=== PATIENT | female | born 1935 | race Caucasian/White ===

== ENCOUNTER 2020-07-02 06:50 | Day surgery (SDC) | payer MEDICARE ==
[2020-07-02] VITALS (8 sets, daily range): BP systolic 115–151; BP diastolic 55–78
[~2020-07-02] VITALS: Ht 157.5 cm; Wt 73.9 kg
[~2020-07-02 06:50] MED LIST: APIX2.5T PO; BRIM10DR16 OP; CALC-724 PO; CETI10CA5 PO; DEXT15DR29 OP; DORZ10DR10 OP; FERR325T22 PO; FURO40TA5 PO; ISOS20TA7 PO; LEVO137T2 PO; LEVO150T11 PO; LOSA100T58 PO; MULT-1192 PO; PROP10DR2 OP; PROP10DR5 OP; REPA0.5T6 PO; SIME62.5 PO; SIMV10TA97 PO; SOTA80TA PO; XALA2.5OS OD
[2020-07-02] MEDS ORDERED: LIDOCAINE HCL-MPF 2% 5ML VIAL ONE (07:33)
[2020-07-02] MEDS ORDERED: PROPOFOL 10 MG/ML 20ML VIAL IV ONE (07:33)
[2020-07-02] MEDS ORDERED: SODIUM CHLORIDE 0.9% 1000ML 1,000 ML IV ONE (08:15)
== END 2020-07-02 09:15 | disposition home or self-care (01) ==
LOC: DAH 06:50
PROVIDERS: ATTEND Student in an Organized Health Care Education/Training Program
DX: K25.1 Acute gastric ulcer with perforation (principal); K44.9 Diaphragmatic hernia without obstruction or gangrene; Z20.828 Contact with and (suspected) exposure to other viral communicable diseases
CPT/HCPCS: 43235; 82948 ×2; A4215; A4221; A4222; A4223; A4606; A4620; A4663; C9803; J2704; J3490; J7030; U0003

== ENCOUNTER → 2020-11-06 | Outpatient (CLI) | payer MEDICARE ==
[~2020-11-06] MED LIST changes: -BRIM10DR16 OP; +BRIM10DR16 OU; +CALC-1158 PO; -CALC-724 PO; -DEXT15DR29 OP; +DEXT15DR29 OU; -DORZ10DR10 OP; +DORZ10DR10 OU; -FERR325T22 PO; +FISH OIL PO; +GENTEAL TEARS OU; -ISOS20TA7 PO; +ISOS20TA85 PO; -LOSA100T58 PO; +LOSA50TA64 PO; +METO-408 PO; +PANT40TA54 PO; +POTA20TA82 PO; -PROP10DR2 OP; -PROP10DR5 OP; +SIME125T3 PO; -SIME62.5 PO; -SOTA80TA PO; -XALA2.5OS OD; +XALA2.5OS OU
== END | disposition home or self-care (01) ==
LOC: RAH 08:43
PROVIDERS: ATTEND Student in an Organized Health Care Education/Training Program
DX: K44.9 Diaphragmatic hernia without obstruction or gangrene (principal); K21.9 Gastro-esophageal reflux disease without esophagitis
CPT/HCPCS: 74240

== ENCOUNTER → 2020-11-27 | Outpatient (CLI) | payer MEDICARE | END | disposition home or self-care (01) | LOC: RAH 09:00 | PROVIDERS: ATTEND Student in an Organized Health Care Education/Training Program | DX: K44.9 Diaphragmatic hernia without obstruction or gangrene (principal); R10.9 Unspecified abdominal pain; N26.1 Atrophy of kidney (terminal); K57.90 Diverticulosis of intestine, part unspecified, without perforation or abscess without bleeding | CPT/HCPCS: 74176 ==

== ENCOUNTER → 2021-04-08 | Outpatient (CLI) | payer MEDICARE | END | disposition home or self-care (01) | LOC: RAH 11:00 | PROVIDERS: ATTEND Student in an Organized Health Care Education/Training Program | DX: R10.9 Unspecified abdominal pain (principal) | CPT/HCPCS: 78264; A9541 ==

== ENCOUNTER → 2021-04-15 | Outpatient (CLI) | payer MEDICARE | END | disposition home or self-care (01) | LOC: RAH 08:53 | PROVIDERS: ATTEND Student in an Organized Health Care Education/Training Program | DX: K44.9 Diaphragmatic hernia without obstruction or gangrene (principal); K25.1 Acute gastric ulcer with perforation; K31.89 Other diseases of stomach and duodenum | CPT/HCPCS: 74240 ==

== ENCOUNTER 2021-05-28 06:38 | Day surgery (SDC) | payer MEDICARE ==
[~2021-05-28 06:38] MED LIST changes: +0.9%NACL 1000ML 1,000 ML IV ONE; -CETI10CA5 PO; -DEXT15DR29 OU; -LEVO137T2 PO; -MULT-1192 PO; -SIME125T3 PO
[2021-05-28 08:32] VITALS: BP 131/61
[2021-05-28] MEDS ORDERED: PROPOFOL 10 MG/ML 20ML VIAL IV ONE (08:45)
[2021-05-28] MEDS ORDERED: 0.9%NACL 10ML VIAL ONE (08:56)
[2021-05-28] MEDS ORDERED: PHENYLEPHRINE HCL 10 MG/ML 1ML VIAL IV ONE (08:56)
[2021-05-28 09:00] VITALS: BP 124/52
[2021-05-28 09:05] VITALS: BP 126/50
[2021-05-28 09:10] VITALS: BP 126/47
[2021-05-28 09:15] VITALS: BP 127/53
[2021-05-28 09:30] VITALS: BP 126/56
== END 2021-05-28 09:30 | disposition home or self-care (01) ==
LOC: DAH 06:38 → ENDO 06:38
PROVIDERS: ATTEND Internal Medicine
DX: R93.3 Abnormal findings on diagnostic imaging of other parts of digestive tract (principal); Z20.822 Contact with and (suspected) exposure to COVID-19; K21.9 Gastro-esophageal reflux disease without esophagitis; I10 Essential (primary) hypertension; I25.10 Atherosclerotic heart disease of native coronary artery without angina pectoris; I48.91 Unspecified atrial fibrillation; F32.9 Major depressive disorder, single episode, unspecified; F41.9 Anxiety disorder, unspecified; E11.9 Type 2 diabetes mellitus without complications; E03.9 Hypothyroidism, unspecified; Z88.0 Allergy status to penicillin; Z98.890 Other specified postprocedural states; Z95.1 Presence of aortocoronary bypass graft; Z86.73 Personal history of transient ischemic attack (TIA), and cerebral infarction without residual deficits; Z98.49 Cataract extraction status, unspecified eye; Z90.710 Acquired absence of both cervix and uterus
CPT/HCPCS: 43235; 82948; 87635; 93005; A4215 ×2; A4221; A4222; A4223; A4606; A4620; A4657; A4663; C9803; J2370; J2704; J7030

== ENCOUNTER 2021-05-29 10:23 | Day surgery (SDC) | payer MEDICARE ==
[2021-05-29] VITALS (8 sets, daily range): BP systolic 98–116; BP diastolic 49–57
[~2021-05-29] VITALS: Ht 152.4 cm; Wt 70.8 kg
[~2021-05-29 10:23] MED LIST changes: -0.9%NACL 1000ML 1,000 ML IV ONE
[2021-05-29] MEDS ORDERED: 0.9%NACL 1000ML 1,000 ML IV ONE (11:25)
[2021-05-29] MEDS ORDERED: PROPOFOL 10 MG/ML 20ML VIAL IV ONE (12:19)
[2021-05-29] MEDS ORDERED: LIDOCAINE HCL 1% 20 ML VIAL ONE (12:19)
[2021-05-29] MEDS ORDERED: GLYCOPYRROLATE 1 MG/5 ML SYRINGE ONE (12:30)
== END 2021-05-29 13:00 | disposition home or self-care (01) ==
LOC: DAH 10:23 → ENDO 10:23
PROVIDERS: ATTEND Internal Medicine
DX: R93.3 Abnormal findings on diagnostic imaging of other parts of digestive tract (principal); K44.9 Diaphragmatic hernia without obstruction or gangrene; Z20.822 Contact with and (suspected) exposure to COVID-19; K25.1 Acute gastric ulcer with perforation; K21.9 Gastro-esophageal reflux disease without esophagitis; I10 Essential (primary) hypertension; E11.43 Type 2 diabetes mellitus with diabetic autonomic (poly)neuropathy; K31.84 Gastroparesis; F41.9 Anxiety disorder, unspecified; F32.9 Major depressive disorder, single episode, unspecified; I25.10 Atherosclerotic heart disease of native coronary artery without angina pectoris; Z90.710 Acquired absence of both cervix and uterus; Z98.890 Other specified postprocedural states; Z98.49 Cataract extraction status, unspecified eye; E89.0 Postprocedural hypothyroidism; Z95.1 Presence of aortocoronary bypass graft; Z85.3 Personal history of malignant neoplasm of breast; Z86.73 Personal history of transient ischemic attack (TIA), and cerebral infarction without residual deficits
CPT/HCPCS: 43235; 82948; A4215 ×2; A4221; A4222; A4223; A4606; A4620; A4657; A4663; J2704; J3490; J7030